=== PATIENT | male | born 1995 | race Hispanic/Latino ===

== ENCOUNTER 2025-03-30 02:19 | Emergency (ER) | payer BC ==
[~2025-03-30] VITALS: Ht 172.7 cm; Wt 99.8 kg
[2025-03-30 02:43] LABS: IMMATURE GRANULOCYTE ABSOLUTE 0.06 K/uL (0-1); NUCLEATED RED BLOOD CELLS 0.0 % (0.0-0.19); PLATELET COUNT (AUTO) 292 K/uL (130-400); RED BLOOD CELL COUNT(AUTO) 5.01 MIL/uL (4.50-6.20); RED CELL DISTRIBUTION WIDTH 12.5 % (11.0-15.5); WHITE BLOOD COUNT (AUTO) 15.2 K/uL (4.8-10.8)
--- NOTE | 2025-03-30 02:43 | ERN ---
ED Note History of Present Illness Stated Complaint: NAUSEA/VOMITING/DIARRHEA Chief Complaint: Nausea,Vomiting,Diarrhea Time Seen by MD: 03:01 Time Seen by Midlevel: 02:25 Dictation: Mr. Boone is a 29-year-old male with history of alcoholism and anxiety who w as transported via EMS to the emergency department this morning for evaluation of abdominal pain. He reports upper abdominal pain accompanied by nausea, vomiting, diarrhea, and dysuria times two days. He states that two days ago he drank rubbing alcohol because he could not afford beer. He states he drinks alcohol most days. He denies use of tobacco but smokes marijuana. He says he also takes Xanax when he can find some. He states he has been seeing psych services at [facility] and they prescribed him some trazodone that he takes nightly. Reports burning with urination and a sensation of incomplete bladder emptying. He states he feels the urge to urinate but is unable to produce more than a small amount. He states that he has also been taking cholestyramine which was prescribed to him at [facility] for his diarrhea . He denies fever, chills, shortness of breath, cough, chest pain, palpitations, edema, hematemesis, constipation, diarrhea, melena, hematochezia, hematuria, headache, dizziness, seizure, tremor, or focal weakness/paresthesia Temperature 98 pulse 86 respirations 16 blood pressure 150/72 with a pulse oximetry of 99% on room air He was at a sober living house and was doing very well however once he left the place he got back into drinking again and also doing crack cocaine and other polysubstances, Allergies: Coded Allergies: No Known Allergies (Unverified Allergy, Unknown, 03/30/25) Emergency Care CREDIT CLERK: None Past Medical History Past Medical History: Anxiety, Other (alcohol abuse) Surgical History: None PSYCH History: anxiety Social History: Drugs (states smokes marijuana), ETOH (Drinks alcohol most days) RN Note Reviewed/Agreed w/PFSH: Yes Review of System Dictation REVIEW OF SYSTEMS: CONSTITUTIONAL: Patient denies fevers, chills, sweats and weight changes. EYES: Patient denies any visual symptoms. EARS, NOSE, AND THROAT: No difficulties with hearing. No symptoms of rhinitis or sore throat. CARDIOVASCULAR: Patient denies chest pains, palpitations, orthopnea and paroxysmal nocturnal dyspnea. RESPIRATORY: No dyspnea on exertion, no wheezing or cough. GI: No constipation, hematemesis, hematochezia or melena. Reports two days of upper abdominal pain/burning with persistent nausea, vomiting, and diarrhea. He states that symptoms began after drinking rubbing all. He states he drank rubbing alcohol because he could not afford beer. : No urinary incontinence or dribbling. No nocturia or urinary frequency. No flank pain. No hematuria.. No abnormal urethral discharge. Reports burning with urination and a sensation of incomplete bladder emptying. He states he feels the urge to urinate but is unable to produce more than a small amount. MUSCULOSKELETAL: No myalgias or arthralgias. NEUROLOGIC: No chronic headaches, no seizures. Patient denies numbness, tingling or weakness. PSYCHIATRIC: Patient denies problems with mood disturbance. Reports anxiety. States that he takes trazodone which has been prescribed to him by psych services at [facility]. He states he also takes Xanax "what he can find some ENDOCRINE: No excessive urination or excessive thirst. DERMATOLOGIC: Patient denies any rashes or skin changes. Initial Vital Sign VS Vital Signs Date Time Temp Pulse Resp B/P (MAP) Pulse Ox O2 Delivery O2 Flow Rate FiO2 03/30/25 02:20 98.1 86 16 150/72 99 Room Air 0 03/30/25 02:30 21 Physical Exam Dictation Vital signs: Reviewed. Afebrile Constitutional: No acute distress. Head/Face: Normocephalic, atraumatic. Eyes: Periorbital areas with no swelling, redness, or edema. Lids and lashes are normal. Conjunctival injection is absent. Sclera anicteric. Pupils equal, round, reactive to light. ENT: Pinnas intact and no signs of trauma or erythema. Ear canals clear and no discharge. TMs no erythema. No nasal discharge or bleeding noted. Oropharynx with no exudate, redness, swelling, masses, exudates, or evidence of obstruction. Uvula midline. Mucous membranes slightly dry Neck: Trachea midline, no masses palpated, and no cervical lymphadenopathy. No swelling. Supple, full range of motion. Chest/Axilla: No tenderness, no crepitus, no paradoxical movement, no retractions. Cardiovascular: Regular rate, regular rhythm, no murmur, no gallops. Symmetric pulses. No peripheral edema. BP 150/72 Respiratory: Respirations even and unlabored. Lung sounds clear; no wheezes, rales or rhonchi. Room air SpO2 98%. Gastrointestinal: Abdomen is slightly distended Bowel sounds are normal. No mass or organomegaly . There is tenderness to upper quadrants and over the epigastrium No rebound. No rigidity. : Negative CVA tenderness bilaterally. Neurological: Normal speech/clear, gross motor function intact, gross sensory function intact. No focal weakness/Paresthesia. No tremor or signs of ETOH withdrawal Musculoskeletal/Extremities: All extremities have full range of motion, no pain or tenderness on palpation. Symmetric pulses. Integumentary: Intact. Skin is normal color, warm and dry. Cap refill less than 2 seconds. Results (Laboratory/Radiology) Laboratory/Radiology Laboratory Tests Test 03/30/25 02:30 03/30/25 03:57 White Blood Count 15.2 K/uL (4.8-10.8) H Red Blood Count 5.01 MIL/uL (4.50-6.20) Hemoglobin 15.5 g/dL (14.0-18.0) Hematocrit 44.3 % (42-54) Mean Corpuscular Volume 88.4 fL (79-99) Mean Corpuscular Hemoglobin 30.9 pg (27.0-33.0) Mean Corpuscular Hemoglobin Concent 35.0 g/dL (32.0-36.0) Red Cell Distribution Width 12.5 % (11.0-15.5) Platelet Count 292 K/uL (130-400) Mean Platelet Volume 9.5 fL (7.5-10.5) Immature Granulocyte % (Auto) 0.4 % (0-1) Neutrophils (%) (Auto) 89.9 % (40.0-77.0) H Lymphocytes (%) (Auto) 4.7 % (21.0-51.0) L Monocytes (%) (Auto) 4.6 % (3.0-13.0) Eosinophils (%) (Auto) 0.2 % (0.0-8.0) Basophils (%) (Auto) 0.2 % (0.0-5.0) Neutrophils # (Auto) 13.7 K/uL (1.8-7.7) H Lymphocytes # (Auto) 0.7 K/uL (1.0-4.8) L Monocytes # (Auto) 0.7 K/uL (0.1-1.0) Eosinophils # (Auto) 0.03 K/uL (0.00-0.70) Basophils # (Auto) 0.03 K/uL (0.00-0.20) Absolute Immature Granulocyte (auto 0.06 K/uL (0-1) Nucleated Red Blood Cells 0.0 % (0.0-0.19) White Cell Morphology Comment See comments Sodium Level 137 mmol/L (136-145) Potassium Level 3.8 mmol/L (3.5-5.1) Chloride Level 99 mmol/L (101-111) L Carbon Dioxide Level 27 mmol/L (21-32) Blood Urea Nitrogen 19 mg/dL (7-18) H Creatinine 0.9 mg/dL (0.5-1.3) Glomerular Filtration Rate Calc 119 mL/min (>90) Random Glucose 104 mg/dL (70-105) Total Calcium 8.3 mg/dL (8.5-10.1) L Total Bilirubin 0.6 mg/dL (0.2-1.0) Direct Bilirubin 0.1 mg/dL (0.0-0.3) Aspartate Amino Transf (AST/SGOT) 28 U/L (10-37) Alanine Aminotransferase (ALT/SGPT) 39 U/L (12-78) Alkaline Phosphatase 58 U/L (50-136) Total Protein 7.1 g/dL (6.0-8.3) Albumin 3.5 g/dL (3.5-5.0) Lipase 35 U/L (16-77) Serum Alcohol < 3 mg/dL (0-10) Urine Color COLORLESS (YELLOW) Urine Appearance CLEAR (CLEAR) Urine pH 8.0 (5.0-8.0) Urine Specific [place] 1.008 (1.001-1.031) Urine Protein NEGATIVE mg/dL (NEGATIVE) Urine Glucose (UA) NEGATIVE mg/dL (NEGATIVE) Urine Ketones NEGATIVE mg/dL (NEGATIVE) Urine Occult Blood NEGATIVE (NEGATIVE) Urine Nitrate NEGATIVE (NEGATIVE) Urine Bilirubin NEGATIVE mg/dL (NEGATIVE) Urine Urobilinogen 0.2 mg/dL (0.2-1.0) Urine Leukocyte Esterase NEGATIVE Cesia/uL Urine Opiates Screen NEGATIVE (NEGATIVE) Urine Barbiturates Screen NEGATIVE (NEGATIVE) Urine Phencyclidine Screen NEGATIVE (NEGATIVE) Urine Amphetamines Screen NEGATIVE (NEGATIVE) Urine Benzodiazepines Screen NEGATIVE (NEGATIVE) Urine Cocaine Screen NEGATIVE (NEGATIVE) Urine Marijuana (THC) Screen NEGATIVE (NEGATIVE) Labs Reviewed?: Yes ED Course ED Course Orders Procedure Category Date Status Time Ondansetron 4mg Inj PHA 03/30/25 Complete (Zofran 4mg Inj) 02:30 Cbc With Differential LAB 03/30/25 Complete 02:25 Basic Metabolic Panel LAB 03/30/25 Complete 02:25 Hepatic Function Panel LAB 03/30/25 Complete 02:25 Lipase LAB 03/30/25 Complete 02:25 Urinalysis Profile LAB 03/30/25 Complete 02:25 0.9%Nacl 1000ml (Ns PHA 03/30/25 Complete 1000ml) 02:30 Drug Screen Urine LAB 03/30/25 Complete 02:34 Pantoprazole 40mg Inj PHA 03/30/25 Complete (Protonix 40mg Inj 03:00 Bladder Scan CPOE 03/30/25 Transmitted 02:43 Nothing By Mouth DIET 03/30/25 Transmitted Breakfast Alcohol, Blood LAB 03/30/25 Complete 02:30 Current Medications Medications (Trade) Dose Ordered Sig/Theo Route PRN Reason Start Time Stop Time Status Last Admin Dose Admin Ondansetron HCl (zoFRAN 4MG INJ) 4 mg ONCE ONCE IVP 03/30/25 02:30 03/30/25 02:31 DC 03/30/25 02:55 Pantoprazole Sodium (PROTonix 40MG INJ) 40 mg ONCE ONCE IVP 03/30/25 03:00 03/30/25 03:01 DC 03/30/25 02:55 Sodium Chloride 1,000 ml @ 0 mls/hr ONCE ONCE IV 03/30/25 02:30 03/30/25 02:31 DC 03/30/25 02:55 Vital Signs Date Time Temp Pulse Resp B/P (MAP) Pulse Ox O2 Delivery O2 Flow Rate FiO2 03/30/25 03:30 98.2 86 18 139/78 98 Room Air* 0 21 03/30/25 02:30 98.1 88 19 132/74 98 Room Air* 0 21 03/30/25 02:20 98.1 86 16 150/72 99 Room Air 0 Medical Decision Making MDM Differential diagnosis: Isopropyl toxicity, gastroenteritis, diverticulitis, enterocolitis, pancreatitis, cholecystitis Mr. Booen is a 29-year-old male with history of alcoholism and anxiety who was transported via EMS to the emergency department this morning for evaluation of abdominal pain. He reports upper abdominal pain accompanied by nausea, vomiting, diarrhea, and dysuria times two days. He states that two days ago he drank rubbing alcohol because he could not afford beer. He states he drinks alcohol most days. He denies use of tobacco but smokes marijuana. He says he also takes Xanax when he can find some. He states he has been seeing psych services at [facility] and they prescribed him some trazodone that he takes nightly. Reports burning with urination and a sensation of incomplete bladder emptying. He states he feels the urge to urinate but is unable to produce more than a small amount. He states that he has also been taking cholestyramine which was prescribed to him at [facility] for his diarrhea . He denies fever, chills, shortness of breath, cough, chest pain, palpitations, edema, hematemesis, constipation, diarrhea, melena, hematochezia, hematuria, headache, dizziness, seizure, tremor, or focal weakness/paresthesia Temperature 98 pulse 86 respirations 16 blood pressure 150/72 with a pulse oximetry of 99% on room air He was at a sober living house and was doing very well however once he left the place he got back into drinking again and also doing crack cocaine and other polysubstances, 3:11 a.m. CBC showed a white count of 15.2 hemoglobin 15.5. BNP 7 shows BUN and creatinine of 19 and 0.9. LFTs are within normal limits. There is no anion gap. ETOH level is less than 3. 4:22 a.m. urinalysis is unremarkable. Urine drug screen is unremarkable. Patient received IV fluids antiemetic and Protonix I updated him on all the labs and workup so far and reassured him that he does not have any osmolar gap or anion gap and acidosis effects of rubbing alcohol at this current time. The possibility of gastroenteritis is also entertained 5:20 a.m. patient admits to feeling significantly improved and all his symptoms have resolved I counseled him extensively at bedside on alcohol abstinence abstinence of recreational drugs and all the negative side effects impact on his life and the negative consequences including multi organ failure and He stated that he will look into a sober living again and seriously consider rehabilitation Rationale: Tests considered and ordered secondary to shared decision making include: Previous outside records reviewed: Old ER visits. Risk of complication and/or morbidity or mortality of patient management: None Medications-Per medication reconciliation Need for hospitalization: Patient does not meet criteria for hospitalization. Need for emergency major/minor surgery: No There are no social concerns with this patient. Prescription drug management Prescriptions will include symptomatic care Patient's prior external medical records from other ER visits were reviewed by me as indicated. Prior testing and results from previous visits were reviewed. Prior tests were taken into account with medical decision making and resource utilization, independent historian/historians were used to obtain complete medical history. I independently interpreted the test that were performed, results were reviewed by me and considered findings on radiology if ordered. Medical management and examination interpretation discussions were had by me with other qualified healthcare professionals as indicated for the patient's care. DX & DISP Disposition: Discharge Departure Impression: Primary Impression: Gastroenteritis Additional Impressions: Alcohol abuse, Toxic effect of rubbing alcohol Condition: Stable Additional Instructions: Patient and the caregiver have been informed of all the diagnostic tests and the imaging conducted during the today's visit to the emergency room and has verbalized understanding of the results I have personally reviewed and interpreted all diagnostic exams performed here in the ER today as well as the vital signs documented by the nursing staff. The patient is now being discharged to home and should follow up with the primary care physician or the specialist as directed by the ER staff. Referrals: NONE (PCP) DEBORA JEFFRIES Mar 30, 2025 02:43 TASIA MARRERO MD Mar 30, 2025 05:24
[2025-03-30 02:55] LABS: CREATININE 0.9 mg/dL (0.5-1.3); GLOMERULAR FILTR. RATE CALC 119 mL/min (>90); GLUCOSE,RANDOM 104 mg/dL (70-105); SODIUM SERUM 137 mmol/L (136-145); UREA NITROGEN, BLOOD 19 mg/dL (7-18)
[2025-03-30] MEDS: 0.9%NACL 1000ML 1,000 ML IV ONE (02:55)
[2025-03-30 03:00] LABS: ASPARTATE AMINOTRANSFERASE 28 U/L (10-37); TOTAL PROTEIN, SERUM 7.1 g/dL (6.0-8.3)
[2025-03-30 03:09] LABS: ALCOHOL, BLOOD < 3 mg/dL (0-10)
[2025-03-30 04:08] LABS: APPEARANCE,URINE CLEAR (CLEAR); GLUCOSE, URINE (UA) NEGATIVE (NEGATIVE); LEUKOCYTE ESTERASE ,URINE NEGATIVE Leu/uL (NEGATIVE); NITRATE,URINE NEGATIVE (NEGATIVE); OCCULT BLOOD,URINE NEGATIVE (NEGATIVE)
[2025-03-30 04:09] LABS: ADD UA MICROSCOPIC NO
[2025-03-30 04:17] LABS: AMPHET/METH SCREEN,URINE NEGATIVE (NEGATIVE); BARBITURATE SCREEN, URINE NEGATIVE (NEGATIVE); CANNABINOID SCREEN,URINE NEGATIVE (NEGATIVE); COCAINE SCREEN,URINE NEGATIVE (NEGATIVE)
[2025-03-30 05:40] VITALS: BP 134/72; PULSE 88; RESP 18; TEMP 98; O2SAT 97
== END 2025-03-30 05:47 | disposition home or self-care (01) ==
LOC: EDH 02:19
DX: K52.9 Noninfective gastroenteritis and colitis, unspecified (principal); T51.91XA Toxic effect of unspecified alcohol, accidental (unintentional), initial encounter; F10.10 Alcohol abuse, uncomplicated; F12.90 Cannabis use, unspecified, uncomplicated; Z79.899 Other long term (current) drug therapy; Y90.0 Blood alcohol level of less than 20 mg/100 ml; Y92.89 Other specified places as the place of occurrence of the external cause
CPT/HCPCS: 99284; 96374; 96361; 96375; 80076; 80048; 80305; 83690; 85025; 81003; 36415; J7030; J2405; J2470